=== PATIENT | male | born 1980 | race Caucasian/White ===

== ENCOUNTER 2016-10-15 23:59 | Emergency (ER) | payer OTHER ==
--- NOTE | ~2016-10-15 | CR72 ---
[facility] A Service of [facility] & [facility] RADIOLOGY TEXT RESULTS PATIENT: FLORIDA VIVAR LOCATION: [facility] : 84 UNIT #: [id number] AGE: [address]: Nevaeh Mann APRN SEX: M ORDER DR: [id number] [facility] [address] [place], [place] [address] [id number] MR#: [id number] Acc #: [id number] NAME: FLORIDA VIVAR : 1980 SEX: M STUDY DATE/TIME: 10/16/2016 2:04 UNIT: [facility] ROOM: STUDY DESCRIPTION: CR Chest Single View Portable Attending Physician: Nevaeh Mann A.P.R.N. Ordering Physician: Nevaeh Mann A.P.R.N. Primary Care Physician: Primary Care Physician No MEDICAL IMAGING REPORT This report is preliminary unless electronic signature is present EXAM AP portable chest 10/16/2016. HISTORY 36-year-old male in the ED complaining of 1-day history of shortness of air, fever, body aches and chills. TECHNIQUE AP portable upright chest x-ray. FINDINGS The examination shows shallow lung expansion with mild infiltrate or atelectasis in the right lung base. Lungs otherwise clear. Heart size and pulmonary vascularity are normal. There is no airspace consolidation or pleural effusion. IMPRESSION Shallow lung expansion with mild infiltrate or atelectasis in the right lung base. Dictated by... Larry Rockwell M.D. THIS IS AN ELECTRONICALLY VERIFIED REPORT Larry Rockwell M.D. at 10/16/2016 9:43 PM HEIDI/paul TD: 10/16/2016 12:24 JOB #: [id number] MEDICAL IMAGING REPORT Page 1 of 1 COPY
--- NOTE | ~2016-10-15 | EKG ---
PATIENT: FLORIDA VIVAR UNIT #: [id number] Ventricular Rate: 110 BPM Atrial Rate: 110 BPM P-R Interval: 140 ms QRS Duration: 114 ms Q-T Interval: 356 ms QTC Calculation(Bezet): 481 ms P [place]: 71 degrees Calculated R [place]: 57 degrees Calculated T [place]: 48 degrees Diagnosis Line: Sinus tachycardia Diagnosis Line: Incomplete right bundle branch block Diagnosis Line: Borderline ECG Diagnosis Line: When compared with ECG of 21-JAN-2011 16:04, Diagnosis Line: Incomplete right bundle branch block has replaced Diagnosis Line: RSR' pattern in V1 Diagnosis Line: Confirmed by TAHIR SOTELO MD ([id number]) on Diagnosis Line: 10/16/2016 2:27:22 PM INTERPRETING MD: DEEPAK BLANK
[~2016-10-15 23:59] MED LIST: ERYTHROMYCIN500 MG PO; KEFLEX500 MG PO; NO MEDICATIONS; VICODIN 5/1 TAB 5/50 PO; VOLTAREN75 MG PO
[2016-10-16 02:39] LABS: INFLUENZA A NEG (NEG); INFLUENZA B NEG (NEG)
[2016-10-16 02:58] LABS: BASOPHIL% 0.3 % (0-2.5); EOSINOPHIL% 0.5 % (0.0-7.0); HEMATOCRIT 41.7 % (38.0-50.0); HEMOGLOBIN 13.9 gm/dL (13.0-16.0); LYMPHOCYTE# 0.1 X10e3 (1.0-3.5); LYMPHOCYTE% 3.6 % (17.0-45.0); MEAN CORPUSCULAR HEMOGLOBIN 29.6 PG (28-34); MEAN CORPUSCULAR HGB CONC 33.2 g/dL (30-36); MEAN PLATELET VOLUME 9.6 FL (6.5-11.5); MONOCYTE# 0.5 X10e3 (0-1.0); MONOCYTE% 13.7 % (3.0-12.0); NEUTROPHIL# 3.1 X10e3 (1.5-7.1); NEUTROPHIL% 81.9 % (40-75); PLATELET COUNT 110 X10e3 (140-420); RED BLOOD COUNT 4.69 X10e (3.90-5.60); RED CELL DISTRIBUTION WIDTH 12.6 % (11.0-15.5); WHITE BLOOD COUNT 3.8 X10e3 (4.0-10.5)
[2016-10-16 03:00] LABS: DIFF IND NO
[2016-10-16 03:07] LABS: POC - CKMB <1.0 ng/mL (0.0-7.9); POC - TROPONIN <0.05 ng/mL (<=0.05)
[2016-10-16 03:19] LABS: URINE SOURCE CLEAN CATCH
[2016-10-16 03:23] LABS: ALBUMIN SERUM 4.2 g/dL (3.5-5.0); ALKALINE PHOSPHATASE 44 U/L (32-92); ALT (SGPT) 13 U/L (10-40); AST (SGOT) 17 U/L (10-42); BILIRUBIN, DIRECT 0.2 mg/dL (0.0-0.2); BILIRUBIN,INDIRECT 1.6 mg/dL (0.0-0.9); BILIRUBIN,TOTAL 1.8 mg/dL (0.2-2.0); BLOOD UREA NITROGEN 15 mg/dL (9-23); CALCIUM SERUM 8.1 mg/dL (8.4-10.2); CARBON DIOXIDE 29 mmol/L (22-31); CHLORIDE 101 mmol/L (100-111); CREATININE SERUM 1.2 mg/dL (0.6-1.4); GLOM FILT RATE Estimated ABOVE60 mL/min (>60); GLUCOSE FASTING 105 mg/dL (70-110); POTASSIUM 3.9 mmol/L (3.5-5.1); PROTEIN TOTAL SERUM 7.1 g/dL (6.0-8.3); SODIUM 132 mmol/L (135-145)
[2016-10-16 03:30] LABS: URINE APPEARANCE CLEAR; URINE BILIRUBIN NEG (NEG); URINE BLOOD NEG (NEG); URINE COLOR YELLOW; URINE GLUCOSE NEG (NEG); URINE KETONE NEG (NEG); URINE LEUKOCYTE ESTERASE NEG (NEG); URINE NITRATE NEG (NEG); URINE PROTEIN TRACE (NEG)
[2016-10-16 03:37] LABS: CULTURE INDICATED? NO
[2016-10-16 03:40] LABS: AMPHETAMINE POS (NEG); BARBITURATES NEG (NEG); BENZODIAZEPINES NEG (NEG); COCAINE POS (NEG); MARIJUANA POS (NEG); OPIATES POS (NEG); TRICYCLIC ANTIDEPRESSANTS NEG (NEG); U METHADONE NEG (NEG)
== END 2016-10-16 04:40 | disposition home or self-care (01) ==
LOC: CED 23:59
PROVIDERS: Emergency Medicine; Nurse Practitioner
DX: F19.10 Other psychoactive substance abuse, uncomplicated (principal); R50.9 Fever, unspecified; R11.2 Nausea with vomiting, unspecified; M54.9 Dorsalgia, unspecified; J11.1 Influenza due to unidentified influenza virus with other respiratory manifestations; F41.9 Anxiety disorder, unspecified; F17.210 Nicotine dependence, cigarettes, uncomplicated
CPT/HCPCS: 36415; 71010; 80048; 80076; 80307; 81003; 82553; 84484; 85025; 87651; 87804; 93005; 96360; 99284; J2405

== ENCOUNTER 2017-02-12 01:12 | Emergency (ER) | payer OTHER ==
[~2017-02-12] VITALS: Ht 172.7 cm; Wt 83.9 kg
== END 2017-02-12 09:25 | disposition home or self-care (01) ==
LOC: CED 01:12
DX: L02.412 Cutaneous abscess of left axilla (principal); L02.411 Cutaneous abscess of right axilla; L02.11 Cutaneous abscess of neck; L02.511 Cutaneous abscess of right hand; F17.210 Nicotine dependence, cigarettes, uncomplicated; Z88.0 Allergy status to penicillin; Z88.5 Allergy status to narcotic agent; Z88.6 Allergy status to analgesic agent; Z88.8 Allergy status to other drugs, medicaments and biological substances
CPT/HCPCS: 10060; 10061; 87070; 87186; 87205; 96365; 96375; 99283; J2270; J2405

== ENCOUNTER 2017-02-13 21:15 | Emergency (ER) | payer OTHER | END 2017-02-13 23:24 | disposition home or self-care (01) | LOC: CED 21:15 | DX: Z48.01 Encounter for change or removal of surgical wound dressing (principal); F17.200 Nicotine dependence, unspecified, uncomplicated | CPT/HCPCS: 99283 ==